=== PATIENT | male | born 1990 | race African-American/Black ===

== ENCOUNTER 2019-09-10 14:29 | Emergency (ER) | payer SELFPAY ==
[2019-09-10] MEDS ORDERED: IPRATROPIUM BROM 0.5MG/2.5ML ONE (15:09)
[2019-09-10] MEDS ORDERED: ALBUTEROL 2.5 MG/3 ML NEB SOL ONE (15:10)
--- NOTE | 2019-09-10 16:01 | RAD REPORT ---
EXAM DESCRIPTION: RAD - Chest Pa And Lat (2 Views) - 09/10/2019 3:41 pm CLINICAL HISTORY: COUGH COMPARISON: None TECHNIQUE: Frontal and lateral views of the chest were obtained. FINDINGS: The lungs are clear. Heart size is normal and central vasculature is within normal limit s. No pleural effusion or pneumothorax seen. No acute bony finding noted. No aortic abnormality. IMPRESSION: No acute cardiopulmonary process.
--- NOTE | 2019-09-10 16:10 | EDPHYS ---
Physician Documentation [facility] Name: Mariel Carroll Age: 29 yrs Sex: Male : 1990 Arrival Date: 09/10/2019 Time: 14:32 Bed 17 Private MD: ED Physician Elroy Cope HPI: 09/09 14:57 This 29 yrs old Black Male presents to ER via Ambulatory with complaints of Asthma kb Exacerbation, Sore Throat, Vomiting. 14:57 The patient has shortness of breath at rest. Onset: The symptoms/episode began/occurred kb years ago. Duration: The symptoms are continuous. The patient's shortness of breath is aggravated by nothing, is alleviated by nothing. Associated signs and symptoms: Pertinent positives: productive cough, vomiting. Severity of symptoms: At their worst the symptoms were moderate in the emergency department the symptoms are unchanged. The patient has not experienced similar symptoms in the past. The patient has not recently seen a physician. Pt reports he has had trouble with his breathing for years, but lately it has been worse. reports he feels like something is blocking and when he tries to cough it up he vomits. States his throat is raw from all of the coughing and vomiting. Reports wheezing at times. Has never been to the dr for this. Historical: - Allergies: 14:46 No Known Allergies; ca1 - Home Meds: 14:46 None [Active]; ca1 - PMHx: 14:46 Asthma; ca1 - PSHx: 14:46 None; ca1 - Immunization history:: Adult Immunizations up to date. - Social history:: Smoking status: Patient reports the use of cigarette tobacco products, denies chronic smoking, but will smoke occasionally. ROS: 14:56 Constitutional: Negative for fever, chills, and weight loss, Cardiovascular: Negative kb for chest pain, palpitations, and edema, Back: Negative for injury and pain, MS/Extremity: Negative for injury and deformity, Skin: Negative for injury, rash, and discoloration, Neuro: Negative for headache, weakness, numbness, tingling, and seizure. 14:56 ENT: Positive for sore throat. 14:56 Respiratory: Positive for cough, shortness of breath. 14:56 Abdomen/GI: Positive for nausea and vomiting. Exam: 14:56 Constitutional: This is a well developed, well nourished patient who is awake, alert, kb and in no acute distress. Head/Face: Normocephalic, atraumatic. ENT: Nares patent. No nasal discharge, no septal abnormalities noted. Tympanic membranes are normal and external auditory canals are clear. Oropharynx with no redness, swelling, or masses, exudates, or evidence of obstruction, uvula midline. Mucous membranes moist. Neck: Trachea midline, no thyromegaly or masses palpated, and no cervical lymphadenopathy. Supple, full range of motion without nuchal rigidity, or vertebral point tenderness. No Meningismus. Chest/axilla: Normal chest wall appearance and motion. Nontender with no deformity. No lesions are appreciated. Cardiovascular: Regular rate and rhythm with a normal S1 and S2. No gallops, murmurs, or rubs. Normal PMI, no JVD. No pulse deficits. Respiratory: Lungs have equal breath sounds bilaterally, clear to auscultation and percussion. No rales, rhonchi or wheezes noted. No increased work of breathing, no retractions or nasal flaring. Abdomen/GI: Soft, non-tender, with normal bowel sounds. No distension or tympany. No guarding or rebound. No evidence of tenderness throughout. Skin: Warm, dry with normal turgor. Normal color with no rashes, no lesions, and no evidence of cellulitis. MS/ Extremity: Pulses equal, no cyanosis. Neurovascular intact. Full, normal range of motion. Neuro: Awake and alert, GCS 15, oriented to person, place, time, and situation. Cranial nerves II-XII grossly intact. Motor strength 5/5 in all extremities. Sensory grossly intact. Cerebellar exam normal. Normal gait. Vital Signs: 14:42 BP 131 / 83; Pulse 66; Resp 18 S; Temp 98.2(TE); Pulse Ox 99% on R/A; Weight 64.41 kg ca1 (R); Height 5 ft. 6 in. (167.64 cm) (R); 16:30 BP 135 / 79; Pulse 67; Resp 19; Pulse Ox 100% ; bp 14:42 Body Mass Index 22.92 (64.41 kg, 167.64 cm) ca1 NIH Stroke Scale Scores: 14:48 NIHSS Score: 0 bp MDM: 14:49 Patient medically screened. kb 14:56 Data reviewed: vital signs, nurses notes. Data interpreted: Pulse oximetry: on room air kb is 99 %. Interpretation: normal. 16:09 Counseling: I had a detailed discussion with the patient and/or guardian regarding: the kb historical points, exam findings, and any diagnostic results supporting the discharge/admit diagnosis, radiology results, the need for outpatient follow up, a family practitioner, to return to the emergency department if symptoms worsen or persist or if there are any questions or concerns that arise at home. 16:10 ED course: Pt states he is breathing much better after treament. kb 09/09 14:55 Order name: Chest Pa And Lat (2 Views) XRAY; Complete Time: 16:09 kb Administered Medications: 15:05 Drug: DuoNeb (3:1) (2.5 mg - 0.5 mg) 3 ml Route: Nebulizer; bp 16:30 Follow up: Response: Marked relief of symptoms bp 16:25 Drug: Bentyl 20 mg Route: PO; bp 16:30 Follow up: Response: Medication administered at discharge. bp 16:25 Drug: Zofran (Ondansetron) 4 mg Route: PO; bp 16:30 Follow up: Response: Medication administered at discharge. bp Disposition: 18:47 Co-signature as Attending Physician, Elroy Cope MD. ma2 Disposition: 09/10/19 16:09 Discharged to Home. Impression: Dyspnea, Cough. - Condition is Stable. - Discharge Instructions: Asthma, Adult, [id number], Cough, Adult, [id number]. - Prescriptions for Tessalon Perles 100 mg Oral Capsule - take 1 capsule by ORAL route every 8 hours As needed; 15 capsule. Albuterol Sulfate 90 mcg/actuation - inhale 1-2 puff by INHALATION route every 4-6 hours; 1 Inhaler. - Medication Reconciliation Form, Thank You Letter, Antibiotic Education, Prescription Opioid Use form. - Follow up: Emergency Department; When: As needed; Reason: Worsening of condition. Follow up: Private Physician; When: 2 - 3 days; Reason: Recheck today's complaints, Continuance of care, Re-evaluation by your physician. NIH Stroke Scale - NIH Stroke Score Date: 09/10/2019 Time: 14:48 Total Score = 0 1a. Level of Consciousness (LOC) - 0(Alert) 1b. Level of Consciousness (LOC) (Year \T\ Age) - 0(Both) 1c. LOC Commands (Open \T\ Closes Eyes/Payment Specialist) - 0(Both) 2. Best Gaze (Lateral Gaze Paresis) - 0(Normal) 3. Visual Field Loss - 0(No visual loss) 4. Facial Palsy - 0(Normal) 5a. Left Arm: Motor (10-second hold) - 0(No drift) 5b. Right Arm: Motor (10-second hold) - 0(No drift) 6a. Left Leg: Motor (5-second hold - always test supine) - 0(No drift) 6b. Right Leg: Motor (5-second hold - always test supine) - 0(No drift) 7. Limb Ataxia (finger/nose \T\ heel/medley - test with eyes open) - 0(Absent) 8. Sensory Loss (pinprick arms/legs/face) - 0(Normal) 9. Best Language: Aphasia (description/naming/reading) - 0(No aphasia) 10. Dysarthria (speech clarity - read or repeat words) - 0(Normal) 11. Extinction and Inattention (visual/tactile/auditory/spatial/personal) - 0(No abnormality) Initials: bp Signatures: Dispatcher [employer] EDMS Georgina Dunbar, VALERIE-C DOCTOR'S ASSISTANT-Oswaldo Luong, MARKO RN Elroy Starr MD MD ma2 Ayaka Palomino RN RN ca1 Corrections: (The following items were deleted from the chart) 16:32 16:09 09/10/2019 16:09 Discharged to Home. Impression: Dyspnea; Cough. bp Condition is Stable. Forms are Medication Reconciliation Form, Thank You Letter, Antibiotic Education, Prescription Opioid Use. Follow up: Emergency Department; When: As needed; Reason: Worsening of condition. Follow up: Private Physician; When: 2 - 3 days; Reason: Recheck today's complaints, Continuance of care, Re-evaluation by your physician. kb
--- NOTE | 2019-09-10 16:10 | ER ---
Nurse's Notes [facility] Name: Mariel Carroll Age: 29 yrs Sex: Male : 1990 Arrival Date: 09/10/2019 Time: 14:32 Bed 17 Private MD: Diagnosis: Dyspnea;Cough Presentation: 09/09 14:42 Chief complaint: Spouse and/or significant other states: He has asthma. He moved into [facility] the apartment May. The apartment has mold, since then he has been having cough off and on with breathing difficulty at times. Recently, it has just gotten worse with his throat irritation causing him to vomit when he coughs. Denies fever. Ebola Screen: Patient negative for fever greater than or equal to 101.5 degrees Fahrenheit, and additional compatible Ebola Virus Disease symptoms Patient denies exposure to infectious person. Patient denies travel to an Ebola-affected area in the 21 days before illness onset. No symptoms or risks identified at this time. Initial Sepsis Screen: Does the patient meet any 2 criteria? No. Patient's initial sepsis screen is negative. Does the patient have a suspected source of infection? No. Patient's initial sepsis screen is negative. Risk Assessment: Do you want to hurt yourself or someone else? Patient reports no desire to harm self or others. Onset of symptoms was September 10, 2019. 14:42 Method Of Arrival: Ambulatory ca1 14:42 Acuity: ELVIN 3 ca1 15:00 Coronavirus screen: Proceed with normal triage. Patient reports a cough. bp Triage Assessment: 14:45 General: Appears distressed, comfortable, Behavior is cooperative, appropriate for age, bp anxious. Pain: Denies pain. EENT: No deficits noted. Neuro: No deficits noted. Cardiovascular: No deficits noted. Respiratory: Reports shortness of breath Breath sounds with wheezes bilaterally. GI: No signs and/or symptoms were reported involving the gastrointestinal system. : No signs and/or symptoms were reported regarding the genitourinary system. Derm: No deficits noted. Musculoskeletal: No deficits noted. Historical: - Allergies: 14:46 No Known Allergies; ca1 - Home Meds: 14:46 None [Active]; ca1 - PMHx: 14:46 Asthma; ca1 - PSHx: 14:46 None; ca1 - Immunization history:: Adult Immunizations up to date. - Social history:: Smoking status: Patient reports the use of cigarette tobacco products, denies chronic smoking, but will smoke occasionally. Screenin:48 Abuse screen: Denies threats or abuse. Denies injuries from another. Nutritional bp screening: No deficits noted. Tuberculosis screening: No symptoms or risk factors identified. The patient has not been NPO before screening. The patient is not alert, or is unable to follow commands. The patient does not exhibit slurred or garbled speech The patient is exhibiting difficulty understanding words. The patient is unable to swallow own secretions without drooling or the need for suction. Patient tolerated one teaspoon of water. No drooling, immediate coughing, gurgling, or clearing of the throat was noted. The patient tolerated 90mL of water. No drooling, immediate coughing, gurgling, or clearing of the throat was noted. Fall Risk No secondary diagnosis (0 pts). No IV (0 pts). Ambulatory Aid- None/Bed Rest/Nurse Assist (0 pts). Gait- Normal/Bed Rest/Wheelchair (0 pts) Mental Status- Total Carlson Fall Scale indicates. Assessment: 14:57 Pain: Denies pain. Respiratory: Airway Respiratory effort is even, labored, Breath bp sounds with wheezes bilaterally. EENT: Throat is clear. 16:30 Reassessment: PT D/C HOME AMBULATORY WITH FAMILY, DX WITH DYSPNEA AND COUGH. bp Vital Signs: 14:42 BP 131 / 83; Pulse 66; Resp 18 S; Temp 98.2(TE); Pulse Ox 99% on R/A; Weight 64.41 kg ca1 (R); Height 5 ft. 6 in. (167.64 cm) (R); 16:30 BP 135 / 79; Pulse 67; Resp 19; Pulse Ox 100% ; bp 14:42 Body Mass Index 22.92 (64.41 kg, 167.64 cm) ca1 NIH Stroke Scale Scores: 14:48 NIHSS Score: 0 bp ED Course: 14:32 Patient arrived in ED. as 14:45 Triage completed. ca1 14:46 Arm band placed on right wrist. ca1 14:47 Oswaldo Lopez, MARKO is Primary Nurse. bp 14:48 Georgina Dunbar FNP-C is PHCP. kb 14:48 Elroy Cope MD is Attending Physician. kb 14:48 Patient has correct armband on for positive identification. Bed in low position. Call bp light in reach. Side rails up X2. 15:41 Chest Pa And Lat (2 Views) XRAY In Process Unspecified. EDMS 16:30 No provider procedures requiring assistance completed. Patient did not have IV access bp during this emergency room visit. Administered Medications: 15:05 Drug: DuoNeb (3:1) (2.5 mg - 0.5 mg) 3 ml Route: Nebulizer; bp 16:30 Follow up: Response: Marked relief of symptoms bp 16:25 Drug: Bentyl 20 mg Route: PO; bp 16:30 Follow up: Response: Medication administered at discharge. bp 16:25 Drug: Zofran (Ondansetron) 4 mg Route: PO; bp 16:30 Follow up: Response: Medication administered at discharge. bp Outcome: 16:09 Discharge ordered by MD. kb 16:30 Discharged to home ambulatory, with family. bp 16:30 Condition: improved 16:30 Discharge instructions given to patient, Instructed on discharge instructions, follow up and referral plans. medication usage, Demonstrated understanding of instructions, follow-up care, medications, Prescriptions given X 2. 16:32 Patient left the ED. bp NIH Stroke Scale - NIH Stroke Score Date: 09/10/2019 Time: 14:48 Total Score = 0 1a. Level of Consciousness (LOC) - 0(Alert) 1b. Level of Consciousness (LOC) (Year \T\ Age) - 0(Both) 1c. LOC Commands (Open \T\ Closes Eyes/Merchandise Flow Manager) - 0(Both) 2. Best Gaze (Lateral Gaze Paresis) - 0(Normal) 3. Visual Field Loss - 0(No visual loss) 4. Facial Palsy - 0(Normal) 5a. Left Arm: Motor (10-second hold) - 0(No drift) 5b. Right Arm: Motor (10-second hold) - 0(No drift) 6a. Left Leg: Motor (5-second hold - always test supine) - 0(No drift) 6b. Right Leg: Motor (5-second hold - always test supine) - 0(No drift) 7. Limb Ataxia (finger/nose \T\ heel/medley - test with eyes open) - 0(Absent) 8. Sensory Loss (pinprick arms/legs/face) - 0(Normal) 9. Best Language: Aphasia (description/naming/reading) - 0(No aphasia) 10. Dysarthria (speech clarity - read or repeat words) - 0(Normal) 11. Extinction and Inattention (visual/tactile/auditory/spatial/personal) - 0(No abnormality) Initials: bp Signatures: Dispatcher [employer] Georgina Owusu, ELECTRIC MULE DRIVER-C ELECTRIC MULE DRIVER-Pari Payne Brian, RN RN bp Ayaka Palomino RN RN ca1
[2019-09-10] MEDS ORDERED: DICYCLOMINE HCL 10 MG CAP ONE (16:34)
[2019-09-10] MEDS ORDERED: ONDANSETRON 4 MG (ODT) TAB ONE (16:34)
[2019-09-10 16:45] VITALS: TEMP 98.2
[2019-09-10 16:46] VITALS: BP 135/79; O2SAT 100
== END 2019-09-10 16:32 | disposition home or self-care (01) ==
LOC: ER 14:29
DX: R05 Cough (principal); J45.909 Unspecified asthma, uncomplicated; Z72.0 Tobacco use
CPT/HCPCS: 71046; 99284